=== PATIENT | male | born 1965 | race Caucasian/White ===

== ENCOUNTER 2016-07-23 15:07 | Emergency (ER) | payer OTHER ==
[~2016-07-23] VITALS: Ht 175.3 cm; Wt 82.8 kg
[~2016-07-23 15:07] MED LIST: ADVIL,NUPRIN,M200 MG PO; HUMULIN N100 UNITS/; HUMULIN N100 UNITS/ SC; LISINOPRIL10 MG PO; MOTRIN800 MG PO; NORCO 5/3251 TABLET PO; NOVOLIN N100 UNITS/ SC; Zestril,Prinivil PO; Zocor PO
[2016-07-23 16:53] LABS: BASOPHIL COUNT 0.1 K/uL (0-0.1); EOSINOPHIL (%) 1.1 % (0-5); EOSINOPHIL COUNT 0.1 K/uL (0-0.3); HEMATOCRIT 40.1 % (38.0-50.0); IMMATURE GRANULOCYTE (%) 0.4 % (0.0-0.7); IMMATURE GRANULOCYTE COUNT 0.1 K/uL; INSTRUMENT ABS NEUTROPHIL CT 8.1 K/uL; LYMPHOCYTE COUNT 1.7 K/uL (1.0-2.8); MCH 35.5 PG (29.0-34.0); MCHC 36.9 G/DL (30.0-36.0); MCV 96.2 FL (86-99); MEAN PLAT.VOLUME 9.6 uM^3 (9.0-12.4); MONOCYTE (%) 11.4 % (3-12); MONOCYTE COUNT 1.3 K/uL (0-0.8); NEUTROPHIL (%) 71.7 % (45-76); NEUTROPHIL COUNT 8.1 K/uL (1.8-6.4); PLATELET COUNT 320 K/uL (156-360); RBC DIS.WIDTH-CV 12.3 % (11.8-14.6); RBC DIS.WIDTH-SD 43.3 % (39-53); RED BLOOD COUNT 4.17 M/uL (4.00-5.50); WHITE BLOOD COUNT 11.3 K/uL (4.1-10.2)
[2016-07-23 17:01] LABS: CHLORIDE 105 mEq/L (99-109); POTASSIUM 3.5 mEq/L (3.7-5.4); SODIUM 135 mEq/L (136-147)
[2016-07-23 17:03] LABS: GLUCOSE 75 mg/dL (70-99)
[2016-07-23 17:05] LABS: ANION GAP 7 MEQ/L (2-14)
[2016-07-23 17:06] LABS: SERUM ETHYL ALCOHOL < 10 mg/dL
[2016-07-23 17:07] LABS: GFR ESTIMATE (CALCULATED) > 59 mL/min/
[2016-07-23 17:08] LABS: UREA NITROGEN (BUN) 17 mg/dL (9-23)
[2016-07-23 17:10] LABS: CREATINE KINASE 118 IU/L (1-294)
[2016-07-23 20:06] LABS: TROP-I INTERPRETATION NEGATIVE; TROPONIN-I < 0.01 ng/mL (0.0-0.30)
[2016-07-23 21:00] VITALS: BP 186/107
[2016-07-23] MEDS ORDERED: LIBRIUM25 MG PO (21:16)
== END 2016-07-23 22:08 | disposition home or self-care (01) ==
LOC: EME 15:07
PROVIDERS: Emergency Medicine
DX: F10.239 Alcohol dependence with withdrawal, unspecified (principal); E86.0 Dehydration; T67.5XXA Heat exhaustion, unspecified, initial encounter; Y92.828 Other wilderness area as the place of occurrence of the external cause; X32.XXXA Exposure to sunlight, initial encounter; I10 Essential (primary) hypertension; E11.9 Type 2 diabetes mellitus without complications; Z79.4 Long term (current) use of insulin; F17.200 Nicotine dependence, unspecified, uncomplicated
CPT/HCPCS: 71010; 80048; 82550; 84484; 85025; 93005; 99281; 99284; G0480; J2060; J7030

== ENCOUNTER 2017-04-29 20:32 | Inpatient (IN) | payer OTHER ==
[~2017-04-29] VITALS: Ht 175.3 cm; Wt 87.9 kg
[~2017-04-29 20:32] MED LIST changes: +LIBRIUM25 MG PO
[2017-04-29 21:38] LABS: HEMATOCRIT 38.7 % (38.0-50.0); MCH 35.8 PG (29.0-34.0); MCHC 36.2 G/DL (30.0-36.0); PLATELET COUNT 367 K/uL (156-360); RBC DIS.WIDTH-CV 12.8 % (11.8-14.6); RBC DIS.WIDTH-SD 46.5 % (39-53); RED BLOOD COUNT 3.91 M/uL (4.00-5.50); WHITE BLOOD COUNT 12.3 K/uL (4.1-10.2)
[2017-04-29 21:48] LABS: CHLORIDE 98 mEq/L (99-109); POTASSIUM 3.6 mEq/L (3.7-5.4); SODIUM 137 mEq/L (136-147)
[2017-04-29 21:49] LABS: GLUCOSE 84 mg/dL (70-99)
[2017-04-29 21:52] LABS: SERUM ETHYL ALCOHOL 226 mg/dL
[2017-04-29 21:53] LABS: CREATININE 1.2 mg/dL (0.6-1.3); GFR ESTIMATE (CALCULATED) > 59 mL/min/ (58.99-99999)
[2017-04-29 21:54] LABS: UREA NITROGEN (BUN) 14 mg/dL (9-23)
[2017-04-29] MEDS ORDERED: BASAGLAR K100 UNIT/1 SC (23:16)
[2017-04-29] MEDS ORDERED: DIOVAN320 MG PO (23:16)
[2017-04-29] MEDS ORDERED: METFORMIN HCL500 MG PO (23:18)
[2017-04-30 03:50] LABS: AMPHETAMINE NEGATIVE (500 ng/mL); BARBITURATES NEGATIVE (200 ng/mL); BENZODIAZEPINES NEGATIVE (150 ng/mL); BUPRENORPHINE NEGATIVE (10 ng/mL); COCAINE NEGATIVE (150 ng/mL); METHADONE NEGATIVE (200 ng/mL); METHAMPHETAMINE NEGATIVE (500 ng/mL); OPIATES (MORPHINE) NEGATIVE (100 ng/mL); OXYCODONE NEGATIVE (100 ng/mL); PHENCYCLIDINE NEGATIVE (25 ng/mL); PROPOXYPHENE NEGATIVE (300 ng/mL); THC CANNABINOIDS PRESUMPTIVE POSITIVE (50 ng/mL); TRICYCLIC ANTIDEPRESSANTS NEGATIVE (300 ng/mL)
[2017-04-30 17:16] VITALS: BP 205/105
[2017-04-30 17:25] VITALS: BP 205/105
[2017-04-30] MEDS ORDERED: HYDROCHLOROTH12.5 M3 PO (17:59)
[2017-04-30] MEDS ORDERED: [UNRECOGNIZED DRUG - OTHER] PO (18:00)
[2017-04-30 21:00] VITALS: BP 185/84
[2017-05-01 08:19] VITALS: BP 153/77
[2017-05-01 15:14] VITALS: BP 142/81
[2017-05-02 07:55] VITALS: BP 122/77
[2017-05-02 15:53] VITALS: BP 120/79
[2017-05-03 08:12] VITALS: BP 118/69
[2017-05-03] MEDS ORDERED: CYMBALTA60 MG PO (10:33)
[2017-05-03] MEDS ORDERED: Thiamine,Vitamin B1 PO (10:33)
[2017-05-03] MEDS ORDERED: FOLIC ACID1 MG PO (10:33)
[2017-05-03] MEDS ORDERED: NALTREXONE HCL50 MG PO (10:40)
== END 2017-05-03 11:49 | disposition home or self-care (01) | DRG 885 ==
LOC: EME 20:32 → EDOF 04-30 14:04 → 1WEST 04-30 14:04 → ENRESERV 04-30 15:43 → 1WEST 04-30 17:02
PROVIDERS: Emergency Medicine; Psychiatry & Neurology Psychiatry
PROC: HZ2ZZZZ Detoxification Services for Substance Abuse Treatment (ICD-10-PCS; principal; 2017-04-30)
DX: F32.2 Major depressive disorder, single episode, severe without psychotic features (principal); R45.851 Suicidal ideations; F10.229 Alcohol dependence with intoxication, unspecified; F10.239 Alcohol dependence with withdrawal, unspecified; E11.9 Type 2 diabetes mellitus without complications; G89.29 Other chronic pain; M54.9 Dorsalgia, unspecified; I10 Essential (primary) hypertension; F12.90 Cannabis use, unspecified, uncomplicated; Z59.9 Problem related to housing and economic circumstances, unspecified; Z87.891 Personal history of nicotine dependence; Z79.4 Long term (current) use of insulin
CPT/HCPCS: 80048; 82948; 84999; 85027; 90839; 97150 GO; 97165 GO; 99281; 99285; G0480; Q0177

== ENCOUNTER 2017-07-07 08:17 | Observation (INO) | payer OTHER ==
[~2017-07-07] VITALS: Ht 175.3 cm; Wt 87.4 kg
[~2017-07-07 08:17] MED LIST changes: +BASAGLAR K100 UNIT/1 SC; +CYMBALTA60 MG PO; +DIOVAN320 MG PO; +FOLIC ACID1 MG PO; +HYDROCHLOROTH12.5 M3 PO; +METFORMIN HCL1000 MG PO; +NALTREXONE HCL50 MG PO; +NESINA25 MG PO; +Thiamine,Vitamin B1 PO
[2017-07-07 09:04] LABS: HEMATOCRIT 39.1 % (38.0-50.0); HEMOGLOBIN 14.8 G/DL (12.5-16.6); MCH 35.5 PG (29.0-34.0); MCHC 37.9 G/DL (30.0-36.0); MCV 93.8 FL (86-99); PLATELET COUNT 389 K/uL (156-360); RBC DIS.WIDTH-SD 41.7 % (39-53); RED BLOOD COUNT 4.17 M/uL (4.00-5.50); WHITE BLOOD COUNT 14.2 K/uL (4.1-10.2)
[2017-07-07 09:08] LABS: CHLORIDE 97 mEq/L (99-109); POTASSIUM 4.5 mEq/L (3.7-5.4); SODIUM 132 mEq/L (136-147)
[2017-07-07 09:09] LABS: GLUCOSE 193 mg/dL (70-99)
[2017-07-07 09:13] LABS: CREATININE 1.3 mg/dL (0.6-1.3); GFR ESTIMATE (CALCULATED) > 59 mL/min/ (58.99-99999)
[2017-07-07 09:14] LABS: UREA NITROGEN (BUN) 17 mg/dL (9-23)
[2017-07-07 09:28] LABS: TROP-I INTERPRETATION NEGATIVE; TROPONIN-I < 0.01 ng/mL (0.0-0.30)
[2017-07-07 09:30] LABS: ALBUMIN 4.6 g/dL (3.2-4.8)
[2017-07-07 09:33] LABS: TOTAL PROTEIN 7.6 g/dL (6.4-8.3)
[2017-07-07 09:35] LABS: TOTAL BILIRUBIN 0.8 mg/dL (0.0-1.0)
[2017-07-07 09:36] LABS: ALKALINE PHOSPHATASE 65 IU/L (3-129)
[2017-07-07 09:37] LABS: COMMENTS - BLOOD GASES A+C+; FI02 21 %; PCO2 < 19 mm Hg (35-45); PO2 128 mm Hg (80-100); SITE RR
[2017-07-07 09:38] LABS: CARBOXY HGB 1.3 % (0-5); METHEMOGLOBIN 0.8 % (0-1.5); pH 7.57 (7.35-7.45)
[2017-07-07 09:39] LABS: ALT (GPT) 28 IU/L (3-49); AST (GOT) 33 IU/L (2-34); DIRECT BILIRUBIN 0.3 mg/dL (0.0-0.3)
[2017-07-07] MEDS ORDERED: DULOXETINE HCL40 MG PO (11:08)
[2017-07-07] MEDS ORDERED: NALTREXONE HCL50 MG PO (11:08)
[2017-07-07] MEDS ORDERED: FOLIC ACID1 MG PO (11:10)
[2017-07-07] MEDS ORDERED: B-1100 MG PO (11:10)
[2017-07-07 11:58] LABS: MAGNESIUM 2.2 mg/dL (1.3-2.7)
[2017-07-07 15:28] LABS: TROP-I INTERPRETATION NEGATIVE; TROPONIN-I 0.02 ng/mL (0.0-0.30)
[2017-07-07 16:50] LABS: APPEARANCE CLEAR ((CLEAR)); BILIRUBIN NEGATIVE; BLOOD MODERATE; COLOR STRAW ((YELLOW)); GLUCOSE (STRIP) >=500; KETONES 5; LEUKOCYTES NEGATIVE; NITRITE NEGATIVE; PROTEIN (STRIP) NEGATIVE; SPECIFIC GRAVITY 1.006 (1.000-1.030); UROBILINOGEN 0.2 MG/DL (0.2-1.0)
[2017-07-07 16:55] LABS: BACTERIA NONE SEEN /HPF; EPITHELIAL CELLS NONE SEEN /HPF; MUCUS NONE SEEN /LPF; RED BLOOD CELLS 0-5 /HPF (0-5); UCUL ADDED? NO; WHITE BLOOD CELLS 0-5 /HPF (0-5)
[2017-07-07 17:28] VITALS: BP 148/80
[2017-07-07 18:38] LABS: CHLORIDE 103 MEQ/L (99-109); CREATININE 1.2 MG/DL (0.6-1.3); GFR ESTIMATE (CALCULATED) > 59 mL/min/ (58.99-99999); GLUCOSE 211 mg/dL (70-99); POTASSIUM 4.3 MEQ/L (3.7-5.4); SODIUM 135 MEQ/L (136-147); UREA NITROGEN (BUN) 17 mg/dL (9-23)
[2017-07-07 19:38] VITALS: BP 160/79
[2017-07-07 21:04] LABS: TROP-I INTERPRETATION NEGATIVE; TROPONIN-I 0.02 ng/mL (0.0-0.30)
[2017-07-07 23:28] VITALS: BP 180/87
[2017-07-08 04:37] VITALS: BP 138/70
[2017-07-08 05:27] LABS: HEMATOCRIT 37.1 % (38.0-50.0); HEMOGLOBIN 13.1 G/DL (12.5-16.6); MCH 34.4 PG (29.0-34.0); MCHC 35.3 G/DL (30.0-36.0); MCV 97.4 FL (86-99); PLATELET COUNT 344 K/uL (156-360); RBC DIS.WIDTH-CV 12.8 % (11.8-14.6); RBC DIS.WIDTH-SD 45.7 % (39-53); RED BLOOD COUNT 3.81 M/uL (4.00-5.50); WHITE BLOOD COUNT 9.3 K/uL (4.1-10.2)
[2017-07-08 05:56] LABS: CHLORIDE 108 MEQ/L (99-109); GFR ESTIMATE (CALCULATED) > 59 mL/min/ (58.99-99999); POTASSIUM 4.2 MEQ/L (3.7-5.4); SODIUM 141 MEQ/L (136-147); UREA NITROGEN (BUN) 12 mg/dL (9-23)
[2017-07-08 06:19] LABS: GLUCOSE 72 mg/dL (70-99)
[2017-07-08 08:03] VITALS: BP 171/90
[2017-07-08 11:56] VITALS: BP 169/89
== END 2017-07-08 13:11 | disposition home or self-care (01) ==
LOC: EME 08:17 → EDOF 10:57 → 4SOUTH 10:57 → ENRESERV 11:02 → 4SOUTH 17:01
PROVIDERS: Emergency Medicine; Internal Medicine
DX: R11.2 Nausea with vomiting, unspecified (principal); I16.0 Hypertensive urgency; I10 Essential (primary) hypertension; E86.0 Dehydration; F10.10 Alcohol abuse, uncomplicated; F12.90 Cannabis use, unspecified, uncomplicated; E87.4 Mixed disorder of acid-base balance; R07.9 Chest pain, unspecified; E87.1 Hypo-osmolality and hyponatremia; E11.9 Type 2 diabetes mellitus without complications; Z79.4 Long term (current) use of insulin; E78.5 Hyperlipidemia, unspecified; F32.9 Major depressive disorder, single episode, unspecified; G89.29 Other chronic pain; Z87.891 Personal history of nicotine dependence
CPT/HCPCS: 36600; 71046; 73522; 80048; 80048 91; 80076; 81003; 82803; 82948; 83735; 83880; 84484; 85027; 93005; 94640; 99281; 99284; G0378; J0360; J1650; J1815; J2405; J2765; J7030

== ENCOUNTER 2017-07-13 12:30 | Emergency (ER) | payer OTHER ==
[~2017-07-13] VITALS: Ht 175.3 cm; Wt 86.3 kg
[~2017-07-13 12:30] MED LIST changes: +B-1100 MG PO; +DULOXETINE HCL40 MG PO
[2017-07-13 13:34] LABS: CHLORIDE 98 mEq/L (99-109); SODIUM 136 mEq/L (136-147)
[2017-07-13 13:36] LABS: GLUCOSE 171 mg/dL (70-99)
[2017-07-13 13:39] LABS: CREATININE 1.3 mg/dL (0.6-1.3); GFR ESTIMATE (CALCULATED) > 59 mL/min/ (58.99-99999)
[2017-07-13 13:40] LABS: UREA NITROGEN (BUN) 16 mg/dL (9-23)
[2017-07-13 13:47] LABS: TROP-I INTERPRETATION NEGATIVE; TROPONIN-I 0.04 ng/mL (0.0-0.30)
[2017-07-13 14:32] LABS: HEMATOCRIT 44.3 % (38.0-50.0); HEMOGLOBIN 15.9 G/DL (12.5-16.6); MCH 33.9 PG (29.0-34.0); MCHC 35.9 G/DL (30.0-36.0); MCV 94.5 FL (86-99); PLATELET COUNT 299 K/uL (156-360); RBC DIS.WIDTH-CV 12.7 % (11.8-14.6); RBC DIS.WIDTH-SD 43.9 % (39-53); RED BLOOD COUNT 4.69 M/uL (4.00-5.50); WHITE BLOOD COUNT 11.8 K/uL (4.1-10.2)
[2017-07-13 17:34] LABS: TROP-I INTERPRETATION NEGATIVE; TROPONIN-I 0.04 ng/mL (0.0-0.30)
[2017-07-13 18:21] VITALS: BP 151/90
== END 2017-07-13 18:24 | disposition home or self-care (01) ==
LOC: EME 12:30
PROVIDERS: Emergency Medicine; Physician Assistant Medical
DX: R07.9 Chest pain, unspecified (principal); I10 Essential (primary) hypertension; E11.9 Type 2 diabetes mellitus without complications; Z79.4 Long term (current) use of insulin; M79.7 Fibromyalgia; Z87.891 Personal history of nicotine dependence; Z87.19 Personal history of other diseases of the digestive system
CPT/HCPCS: 71046; 80048; 84484; 85027; 93005; 99281; 99285; J2405; J7030